=== PATIENT | male | born 1935 | race Caucasian/White ===

== ENCOUNTER 2021-06-14 13:38 | Outpatient (NON) | payer OTHER, SELFPAY | END 2021-06-14 13:39 | disposition home or self-care (01) | LOC: CHSLAB 13:39 | PROVIDERS: Visit Provider Nurse Practitioner Family | DX: R30.0 Dysuria (principal) | CPT/HCPCS: 87086; 87088 ==

== ENCOUNTER 2021-08-05 10:40 | Outpatient (CLI) | payer MEDICARE, OTHER, SELFPAY ==
[2021-08-05 12:15] LABS: Influenza A QL RT-PCR Negative (Negative); Influenza B QL RT-PCR Negative (Negative); SARS-CoV-2 RNA PCR Positive (Negative)
--- NOTE | 2021-08-05 14:30 | PC.NURSE ---
Pt to room 210 amb. A&Ox3. Has no questions or complaints. Regeneron infusion explained. Pt signed consent. Oriented to room, call north in reach. Reminded to call with needs.
[2021-08-05 14:59] VITALS: BP 128/79; PULSE 64; RESP 20; TEMP 37.4; O2SAT 91
[2021-08-05] MEDS: FAMOTIDINE 20 MG TABLET PO (15:00)
[2021-08-05] MEDS: diphenhydrAMINE HCl CAP 25 MG CAPSULE PO (15:00)
[2021-08-05] MEDS: ACETAMINOPHEN 325 MG TABLET 650 MG PO (15:00)
--- NOTE | 2021-08-05 16:33 | PC.NURSE ---
Pt has no questions or complaints. Tolerated infusion well. Discharged to home amb with family.
== END 2021-08-05 10:41 | disposition home or self-care (01) ==
LOC: CHSLAB 10:43 → CHSTREATRM 14:25
PROVIDERS: PCP Family Medicine; Visit Provider Nurse Practitioner Family
DX: U07.1 COVID-19 (principal)
CPT/HCPCS: 87502; A9270; C9803; J7050; M0243; Q0244; U0003; U0005

== ENCOUNTER 2021-08-06 13:23 | Inpatient (IN) | payer OTHER, SELFPAY ==
[2021-08-06] VITALS (9 sets, daily range): BP systolic 99–128; BP diastolic 66–82; PULSE 53–73; RESP 16–24; TEMP 36.3–37.3; O2SAT 88–94
--- NOTE | ~2021-08-06 | XR_ITS ---
EXAMINATION: XR chest 1V portable DATE: 08/06/2021 14:24 INDICATION: Dyspnea. TECHNIQUE: A single frontal view of the chest was obtained. COMPARISON: Chest 2 views 11/20/16, chest CT 02/18/2015 FINDINGS: There are mild airspace opacities in peripheral right midlung zone and left mid and lower l zakia zones. No pleural effusion or pneumothorax. The heart size is normal. IMPRESSION: 1. Mild airspace opacities in peripheral right midlung zone and left mid and lower lung zones, consis tent with COVID-19 pneumonia. Reviewed, dictated and finalized at location A. TECHNICIAN IMPRESSION: 1. Mild airspace opacities in peripheral right midlung zone and left mid and lo wer lung zones, consistent with COVID-19 pneumonia.
--- NOTE | 2021-08-06 13:44 | ECG_ITS ---
Measurements Intervals [place]ez Rate: 68 P: -32 NV: 217 QRS: -44 QRSD: 102 T: 69 QT: 413 QTc: 442 Interpretive Statements SINUS RHYTHM WITH FIRST DEGREE AV BLOCK BORDERLINE R WAVE PROGRESSION, ANTERIOR LEADS INFERIOR INFARCT, AGE INDETERMINATE BORDERLINE ST-T WAVE ABNORMALITY- HIGH LATERAL LEADS BASELINE ARTIFACT- I, II, III, AVR, AVL, AVF, V1, V5-V6 ABNORMAL ECG Electronically Signed On 08-07-2021 7:11:13 TRANSITION RN by Roosevelt Zarco D.O.
--- NOTE | 2021-08-06 13:48 | PC.NURSE ---
Pt placed on 1L O2 per NC. Pt saturation increased to 92%.
[2021-08-06 14:08] LABS: Base Excess ABG 3.8 mmol/L (0-2); HCO3 ABG 28.9 mmol/L (23-29); Oxygen Content ABG 19.6 %vol (16.0-22.0); Oxygen Saturation ABG 93.5 % (95-97); Oxyhemoglobin 92.8 % (94-100); PCO2 ABG 45.2 mmHg (35-45); PO2 ABG 68.4 mmHg (75-85); pH ABG 7.42 (7.35-7.45)
[2021-08-06 14:09] LABS: Device NASAL CANNULA; Modified Allen's Test Pass; Site Drawn LEFT RADIAL
[2021-08-06 14:11] LABS: Basophils Absolute Auto 0.01 K/mm3 (0.00-0.10); Basophils Percent Auto 0.2 % (0.0-1.0); Eosinophils Absolute Auto 0.01 K/mm3 (0.02-0.50); Eosinophils Percent Auto 0.2 % (1.0-6.0); Hemoglobin 14.8 g/dL (12.4-15.3); Immature Granulocyte Absolute 0.02 K/mm3 (0.00-0.00); Immature Granulocyte Percent A 0.3 % (0.0-0.0); Immature Platelet Fraction Pct 2.4 % (1.0-7.0); Lymphocytes Absolute Auto 0.75 K/mm3 (1.10-4.50); Lymphocytes Percent Auto 12.3 % (18.0-42.0); Mean Corpuscular HGB Conc 33.6 g/dL (32.0-36.0); Mean Corpuscular Hemoglobin 29.1 pg (27.0-31.0); Mean Corpuscular Volume 86.6 fL (78.0-102.0); Mean Platelet Volume 9.9 fl (8.7-11.0); Monocytes Absolute Auto 0.36 K/mm3 (0.10-0.90); Monocytes Percent Auto 5.9 % (2.0-11.0); Neutrophils Percent Auto 81.1 % (50.0-70.0); Platelet Count Result 137 K/mm3 (150-420); Red Blood Count 5.08 M/mm3 (4.70-6.10); White Blood Count 6.1 K/mm3 (4.8-10.8)
[2021-08-06 14:21] LABS: Partial Thromboplastin Time 35.6 SEC (23.90-30.70); Prothrombin Time 10.7 Seconds (9.50-12.10)
[2021-08-06 14:29] LABS: Alanine Aminotransferase 28 U/L (16-63); Albumin Level 2.7 g/dL (3.4-5.0); Alkaline Phosphatase 55 U/L (46-116); Anion Gap 9 mmol/L (8-16); Aspartate Amino Transferase 34 U/L (15-37); Bilirubin,Total 0.5 mg/dL (0.00-1.00); Blood Urea Nitrogen 17 mg/dL (7-18); Calcium 7.6 mg/dL (8.5-10.1); Carbon Dioxide 31 mmol/L (21-32); Chloride 100 mmol/L (98-108); Estimated CRCL calculation 37 ml/min; Estimated Glomerular Filt Rate 41; Glucose 139 mg/dL (70-99); Magnesium 1.9 mg/dL (1.8-2.4); NT Pro B Type Natriuretic Pept 675 pg/mL (0-450); Osmolality Calculated 293 mOsm/kg (285-295); Potassium 3.2 mmol/L (3.5-5.1); Sodium 140 mmol/L (136-145); Total Protein 6.5 g/dL (6.4-8.2)
[2021-08-06 14:42] LABS: Troponin I 28.5 ng/L (0.00-60.4)
--- NOTE | 2021-08-06 14:53 | ED.URI ---
HPI - URI/Sore Throat General Chief Complaint: Upper Respiratory Infection Stated Complaint: low oxygen Source: patient Mode of arrival: wheelchair History of Present Illness HPI Narrative: this is 86-year-old gentleman that presents with shortness of breath, was diagnosed with COVID apparently yesterday and currently with shortness of breath has been having lower O2 saturations patient did have O2 saturation upon presentation of 88% and was put on couple of L of oxygen currently has a some congestion nasal congestion with no chest pain no abdominal pain currently no fever chills. MD elicited complaint: cough and nasal congestion Onset (ago): day(s) Consistency: constant Severity: moderate Related Data Allergies Allergy/AdvReac Type Severity Reaction Status Date / Time No Known Allergies Allergy Unknown Verified 06/28/21 07:07 Review of Systems Review of Systems: All systems reviewed & are unremarkable except as noted in HPI and below PMFSH Past Medical History Medical History Adjustment disorder with depressed mood Essential (primary) hypertension (02/21/17) History of primary bladder cancer Influenza vaccine administered Mixed hyperlipidemia Primary generalized (osteo)arthritis Primary insomnia Slow transit constipation Surgical History Surgical History History of urostomy Family History Family History Sibling Hypertension Social History Social History Smoking status: Former smoker Second hand tobacco smoke exposure: No Smoking end date: 09/03/1961 Alcohol intake: never Exam Const: General: no acute distress and alert Orientation/consciousness: patient oriented x3 HENMT: Head: normal to inspection Eyes: Conjunctivae: conjunctivae normal Pupils: Equal, round and reactive pupils present EOM: EOMs intact bilaterally Neck: Neck: normal visual inspection and no lymphadenopathy Chest: Chest palpation & inspection: normal inspection of the chest Resp: Effort & Inspection: normal respiratory effort Auscultation: diminished lung sounds Cardio: Rate: regular rate Rhythm: regular rhythm GI: GI Palp: Yes Soft to palpation Percussion: Yes normal to percussion Back/Spine/Pelvis: Back: no CVA tenderness Skin: General skin exam: normal color Rashes: no rashes Neuro: General: patient oriented x3 and moves all extremities Psych: Mental Status: mental status grossly normal Affect: normal affect Course Course Emergency Course: Patient with a recent diagnosis of COVID presents with some shortness of breath with some hypoxic episodes labs reviewed with patient his PO2 on arterial blood gases 68% had a chest x-ray that was reviewed with patient and will be admitting patient. Vital Signs Vital signs: Vital Signs Temperature 37.3 C 08/06/21 13:44 Pulse Rate 73 08/06/21 13:44 Respiratory Rate 24 H 08/06/21 13:44 Blood Pressure 128/82 08/06/21 13:44 Pulse Oximetry 88 L 08/06/21 13:44 Temperature 37.3 C 08/06/21 13:44 Pulse Rate 73 08/06/21 13:44 Respiratory Rate 24 H 08/06/21 13:44 Blood Pressure 128/82 08/06/21 13:44 Pulse Oximetry 88 L 08/06/21 13:44 MDM - URI/Sore Throat Lab Data Result diagrams: 08/06/21 14:00 08/06/21 14:00 Labs: Lab Results 08/06/21 08/06/21 08/06/21 Range/Units 14:00 14:00 14:00 WBC 6.1 (4.8-10.8) K/mm3 RBC 5.08 (4.70-6.10) M/mm3 Hgb 14.8 (12.4-15.3) g/dL Hct 44.0 (37.0-46.0) % MCV 86.6 (78.0-102.0) fL MCH 29.1 (27.0-31.0) pg MCHC 33.6 (32.0-36.0) g/dL RDW 14.0 (11.6-14.4) % Plt Count 137 L (150-420) K/mm3 MPV 9.9 (8.7-11.0) fl Immature Gran % (Auto) 0.3 H (0.0-0.0) % Neut % (Auto) 81.1 H (50.0-70.0) % Lymph % (Au
--- NOTE | 2021-08-06 18:00 | ADMGEN ---
This patient, Bony Rosales, was admitted to 2nd Floor Room 212-1. Patient/family oriented to hospital policies and general routines including ID bracelet, bed and alarms, visiting hours, pain management, procedures, bathroom and other care routines, personal items, smoking policy, room service/diet, and visiting hours. Information on how to activate the Rapid Response Team has been discussed. Patient/Family are encouraged to report perceived risks to care and to ask questions if they do not understand what they are told or what they should do.
[2021-08-07] VITALS (8 sets, daily range): BP systolic 99–117; BP diastolic 56–67; PULSE 51–94; RESP 15–20; TEMP 36.2–36.6; O2SAT 91–100
[2021-08-07] MEDS: DEXAMETHASONE SOD PHOS INJ 4 MG/ML VIAL 6 MG IV PUSH ×4 (00:50→18:15)
--- NOTE | 2021-08-07 01:29 | PC.NURSE ---
Pt is currently sleeping with the room light dimly lit. Call light is within reach.
--- NOTE | 2021-08-07 03:26 | PC.NURSE ---
Pt is sleeping on his back with the room light on. Call light is within reach.
[2021-08-07 06:20] LABS: Hemoglobin 15.3 g/dL (12.4-15.3); Mean Corpuscular HGB Conc 31.9 g/dL (32.0-36.0); Mean Corpuscular Hemoglobin 28.6 pg (27.0-31.0); Mean Corpuscular Volume 89.7 fL (78.0-102.0); Mean Platelet Volume 10.1 fl (8.7-11.0); Platelet Count Result 141 K/mm3 (150-420); Red Blood Count 5.35 M/mm3 (4.70-6.10); Red Cell Distribution Width 14.2 % (11.6-14.4); White Blood Count 3.6 K/mm3 (4.8-10.8)
[2021-08-07 06:41] LABS: Prothrombin Time 10.4 Seconds (9.50-12.10)
[2021-08-07 06:53] LABS: Alanine Aminotransferase 32 U/L (16-63); Albumin Level 2.7 g/dL (3.4-5.0); Alkaline Phosphatase 55 U/L (46-116); Anion Gap 9 mmol/L (8-16); Aspartate Amino Transferase 38 U/L (15-37); Bilirubin,Total 0.4 mg/dL (0.00-1.00); Blood Urea Nitrogen 23 mg/dL (7-18); Carbon Dioxide 29 mmol/L (21-32); Chloride 103 mmol/L (98-108); Estimated CRCL calculation 38 ml/min; Estimated Glomerular Filt Rate 43; Glucose 160 mg/dL (70-99); Osmolality Calculated 298 mOsm/kg (285-295); Potassium 3.6 mmol/L (3.5-5.1); Sodium 141 mmol/L (136-145); Total Protein 6.7 g/dL (6.4-8.2)
[2021-08-07 07:21] LABS: Band Neutrophils Percent 0 % (0-6); Basophils Percent Manual 0 % (0-1); Eosinophils Percent Manual 0 % (1-6); Lymphocytes Absolute Manual 0.32 K/mm3 (1.1-4.5); Lymphocytes Percent Manual 9 % (18-44); Monocytes Absolute Manual 0.21 K/mm3 (0.1-0.90); Monocytes Percent Manual 6 % (3-9); Neutrophils Absolute Manual 3.06 K/mm3 (1.3-6.7); Neutrophils Percent Manual 85 % (46-73); Platelet Estimate Adequate (Adequate)
[2021-08-07] MEDS: ENOXAPARIN 40 MG/0.4 ML SYRINGE SUB-Q (09:44)
[2021-08-07] MEDS: CELECOXIB 100 MG CAPSULE 200 MG PO (09:45)
[2021-08-07] MEDS: ATORVASTATIN 10 MG TABLET 20 MG PO (09:45)
[2021-08-07] MEDS: lisinopriL 20 MG TABLET 40 MG PO (09:45)
[2021-08-07] MEDS: amLODIPine BESYLATE 5 MG TABLET 10 MG PO (09:45)
[2021-08-07] MEDS: hydroCHLOROthiazide 25 MG TABLET PO (09:46)
[2021-08-07] MEDS: FLUoxetine HCL 20 MG CAPSULE 40 MG PO (09:46)
[2021-08-07] MEDS: REMDESIVIR 200 MG/NS 250 ML 200 MG/250 ML BAG 250 MG IVPB (12:46)
--- NOTE | 2021-08-07 14:03 | PM.IMHP ---
H&P: HPI History of Present Illness Date/Time: 08/07/21 14:03 this is a 86-year-old male who presented to our emergency department with complaints of shortness of breath. Patient has a past medical history of depression and, hypertension, bladder cancer, hyperlipidemia, arthritis, insomnia and constipation. Patient tested positive for Covid on08/05/21 patient notes that he has experienced shortness of breath for several weeks along with his shortness of breath he complains of fatigue and loss of taste. Patient has not been vaccinated. Patient notes that he thought that he had a cold for several weeks and took [id number] medication patient WBCs 3.6 hemoglobin 15.3 hematocrit 48.0, platelets 141 ABG pH 7.42 CO2 45.2 O2 68.4, bicarb 28.9, sodium 140, potassium 2.3, BUN 17, creatinine 1.60, glucose 139, magnesium 1.9, liver function test within normal limits, troponin 28.5, BUN 675, chest ray Covid pneumonia, EKG sinus rhythm with first-degree AV block with a heart rate of 68. Patient be admitted for Covid pneumonia <PETAR Zhang - Last Filed: 08/07/21 14:26> Chief Complaint: Shortness of breath <PETAR Zhang - Last Filed: 08/07/21 14:26> Review of Systems Review of Systems: A 14 organ system Review of Systems was performed and pertinent positives included in the HPI, otherwise remaining ROS is negative. <PETAR Zhang - Last Filed: 08/07/21 14:26> [facility] Past Medical History Medical History: Medical History Adjustment disorder with depressed mood Essential (primary) hypertension (02/21/17) History of primary bladder cancer Influenza vaccine administered Mixed hyperlipidemia Primary generalized (osteo)arthritis Primary insomnia Slow transit constipation <PETAR Zhang - Last Filed: 08/07/21 14:26> Surgical History Surgical History: Surgical History History of urostomy <PETAR Zhang - Last Filed: 08/07/21 14:26> Family History Family History: Family History Sibling Hypertension <PETAR Zhang - Last Filed: 08/07/21 14:26> Social History Social History: Social History Smoking status: Former smoker Second hand tobacco smoke exposure: No Smoking end date: 09/03/1961 Alcohol intake: unknown Substance use: unknown Substance use type: does not use Spiritual care concerns: No <PETAR Zhang - Last Filed: 08/07/21 14:26> Meds Home Medications and Allergies Home medications: Home Medications Medication Instructions Recorded Confirmed Type amlodipine 10 mg tablet 10 mg PO DAILY #90 tablet 12/07/20 08/06/21 Rx celecoxib 200 mg capsule 200 mg PO DAILY #90 cap 12/07/20 08/06/21 Rx fluoxetine 40 mg capsule 40 mg PO .in the morning #90 cap 03/29/21 08/06/21 Rx lisinopril 40 mg tablet 40 mg PO DAILY #90 tablet 07/01/21 08/06/21 Rx atorvastatin 20 mg PO DAILY 08/06/21 08/06/21 History hydrochlorothiazide 25 mg PO DAILY 08/06/21 08/06/21 History melatonin 10 mg PO HS PRN 08/06/21 08/06/21 History <PETAR Zhang - Last Filed: 08/07/21 14:26> Allergies/Adverse reactions: Allergies Allergy/AdvReac Type Severity Reaction Status Date / Time No Known Allergies Allergy Unknown Verified 08/06/21 17:30 <PETAR Zhang - Last Filed: 08/07/21 14:26> Vital Signs Vital Signs - 24 hr 08/06/21 14:58 08/06/21 15:50 08/06/21 17:45 Temperature Pulse Rate 63 66 Respiratory Rate 20 18 Blood Pressure 118/70 123/66 Pulse Oximetry 91 94 94 08/06/21 18:00 08/06/21 20:00 08/06/21 21:39 Temperature 97.4 F L 97.5 F L 97.5 F L Pulse Rate 69 53 L 53 L Respiratory Rate 18 16 16 Blood Pressure 117/68 99/67 L 99/67 L Pulse Oximetry 91 91 91
[2021-08-07] MEDS: BUDESONIDE/FORMOTEROL (*SP) 160-4.5 MCG 6 GM INH 2 PUFF INHALATION (18:15)
[2021-08-07] MEDS: MELATONIN 5 MG TABLET 10 MG PO (21:55)
[2021-08-07] MEDS: ENOXAPARIN 30 MG/0.3 ML SYRINGE SUB-Q (21:55)
[2021-08-08] VITALS: BP 107/57; PULSE 58; RESP 16; TEMP 36.4; O2SAT 92
[2021-08-08] MEDS: DEXAMETHASONE SOD PHOS INJ 4 MG/ML VIAL 6 MG IV PUSH ×4 (00:30→17:40)
[2021-08-08 03:25] VITALS: BP 98/58; PULSE 54; RESP 17; TEMP 36.4; O2SAT 94
[2021-08-08 05:28] VITALS: O2SAT 92
[2021-08-08 06:18] LABS: Hemoglobin 14.2 g/dL (12.4-15.3); Mean Corpuscular HGB Conc 32.3 g/dL (32.0-36.0); Mean Corpuscular Hemoglobin 28.6 pg (27.0-31.0); Mean Corpuscular Volume 88.5 fL (78.0-102.0); Mean Platelet Volume 10.8 fl (8.7-11.0); Platelet Count Result 202 K/mm3 (150-420); Red Blood Count 4.97 M/mm3 (4.70-6.10); Red Cell Distribution Width 13.9 % (11.6-14.4)
[2021-08-08 06:31] LABS: Prothrombin Time 10.2 Seconds (9.50-12.10)
--- NOTE | 2021-08-08 06:37 | PC.NURSE ---
Pt has refused the use of his proair inhaler twice and symbicort this morning. Pt stated I feel like I don't need it and I do not want to use them. Education was provided on how each inhaler works and the benefits of use and importance on how the inhalers can improve disease process. Pt still refused inhalers. Pt has his call light within reach and was fine with receiving decadron via IV push.
[2021-08-08 06:38] LABS: Alanine Aminotransferase 25 U/L (16-63); Albumin Level 2.4 g/dL (3.4-5.0); Alkaline Phosphatase 47 U/L (46-116); Anion Gap 9 mmol/L (8-16); Aspartate Amino Transferase 24 U/L (15-37); Bilirubin,Total 0.2 mg/dL (0.00-1.00); Blood Urea Nitrogen 33 mg/dL (7-18); Calcium 8.2 mg/dL (8.5-10.1); Carbon Dioxide 29 mmol/L (21-32); Chloride 100 mmol/L (98-108); Estimated CRCL calculation 38 ml/min; Estimated Glomerular Filt Rate 43; Glucose 206 mg/dL (70-99); Osmolality Calculated 299 mOsm/kg (285-295); Potassium 3.4 mmol/L (3.5-5.1); Sodium 138 mmol/L (136-145); Total Protein 6.2 g/dL (6.4-8.2)
[2021-08-08 08:00] VITALS: BP 115/66; PULSE 78; RESP 20; TEMP 36.4; O2SAT 91
[2021-08-08] MEDS: POTASSIUM CHLORIDE 20 MEQ TABLET 40 MEQ PO ×2 (08:28→09:59)
[2021-08-08] MEDS: ENOXAPARIN 30 MG/0.3 ML SYRINGE SUB-Q ×2 (08:28→20:53)
[2021-08-08] MEDS: lisinopriL 20 MG TABLET 40 MG PO (08:28)
[2021-08-08] MEDS: ATORVASTATIN 10 MG TABLET 20 MG PO (08:29)
[2021-08-08] MEDS: FLUoxetine HCL 20 MG CAPSULE 40 MG PO (08:29)
[2021-08-08] MEDS: hydroCHLOROthiazide 25 MG TABLET PO (08:29)
[2021-08-08] MEDS: CELECOXIB 100 MG CAPSULE 200 MG PO (08:29)
[2021-08-08] MEDS: DOCUSATE SODIUM 100 MG CAPSULE PO ×2 (09:59→20:53)
[2021-08-08] MEDS: REMDESIVIR 100 MG/NS 250 ML 100 MG/250 ML BAG 250 MG IVPB (10:45)
[2021-08-08] MEDS: ALBUTEROL SULFATE (*SP) INHALER 2 PUFF INHALATION ×3 (11:01→20:53)
[2021-08-08 12:00] VITALS: BP 96/51; PULSE 67; RESP 20; TEMP 36.4; O2SAT 90
--- NOTE | 2021-08-08 13:44 | WPDPN ---
Progress Note: A&P Assessment and Plan (1) Pneumonia due to COVID-19 virus: Code(s): U07.1 - COVID-19; J12.82 - Pneumonia due to coronavirus disease 2019 Status: Acute Assessment and Plan: Tested positive for Covid on 08/05/2021 Chest x-ray indicate Covid pneumonia Continue azithromycin, Rocephin, dexamethasone and remdesivir once a day Blood gas pH 7.42 CO2 45.2 O2 68.4 bicarb 20.9 (2) Mixed hyperlipidemia: Code(s): E78.2 - Mixed hyperlipidemia Status: Acute Assessment and Plan: Continue atorvastatin (3) Primary generalized (osteo)arthritis: Code(s): M15.0 - Primary generalized (osteo)arthritis Status: Acute Assessment and Plan: Continue Celebrex (4) Primary insomnia: Code(s): F51.01 - Primary insomnia Status: Acute Assessment and Plan: Continue melatonin and trazodone (5) Adjustment disorder with depressed mood: Code(s): F43.21 - Adjustment disorder with depressed mood Status: Acute Assessment and Plan: Continue fluoxetine (6) Essential (primary) hypertension: Onset Date: 02/21/17 Code(s): I10 - Essential (primary) hypertension Status: Acute Assessment and Plan: Soft Lisinopril and Norvasc on hold until tomorrow hydrochlorothiazide Vital signs as ordered Will adjust medication as needed (7) Hypokalemia: Code(s): E87.6 - Hypokalemia Status: Acute Assessment and Plan: Potassium 3.2>3.6>3.4 Added daily potassium 40 mEq and gave 1 additional dose today We will continue to monitor (8) Acute kidney injury: Code(s): N17.9 - Acute kidney failure, unspecified Status: Acute Assessment and Plan: Secondary to infection Creatinine 1.60>1.55 >1.56baseline appears to be at 1.10 Continue to monitor Avoid nephrotoxic agent Renal dose medication Subjective Date/time seen: 08/08/21 13:44 patient states that his condition has been he notes that his shortness of breath has improved but he continues to have it he also notes that his cough has improved. Patient is anxious to discharge home I informed him that he should probably stay for a couple more days for treatment with remdesivir and dexamethasone. Patient agrees. The patient denies CP, palpitation, extremity numbness, lightheadedness, dizziness, constipation, diarrhea, chills, or fever. Patient will more than likely need a home O2 evaluation Review of Systems Review of Systems: A 14 organ system Review of Systems was performed and pertinent positives included in the HPI, otherwise remaining ROS is negative. Exam Narrative: GENERAL: Elderly , pleasant gentleman in no apparent distress. HEAD: normocephalic, atraumatic. EYES: PERRL. Sclera clear/white. Vision is grossly intact. EARS: External ears normal, auditory canals clear and without drainage, TMs normal without perforation. Hearing grossly intact. NOSE: External nose normal with no obvious nasal discharge, nares without redness, no rhinorrhea. THROAT: Mucous membranes moist, posterior pharynx clear. NECK: Neck supple, non-tender without lymphadenopathy, masses or thyromegaly. CARDIOVASCULAR: Regular rate and rhythm without murmurs, gallops, or rubs. RESPIRATORY: Diminished throughout with. GASTROINTESTINAL: Abdomen soft, non-tender, nondistended. Bowel sounds are active. No hepato-splenomegaly, or palpable masses. No guarding. SKIN: warm, intact with no suspicious lesions or rash, good texture and turgor. NEURO: awake, alert, and oriented to person, place and time. There were no obvious focal neurologic abnormalities. EXTREMITIES: Normal range of motion. No edema. No calf tenderness. Negative Homans sign bilaterally. BACK: Nontender without deformity or crepitance. No flank tenderness. Objective Data Vital Signs Vital Signs: Vital Signs - 24 hr 08/07/21 16:00 08/07/21 20:00 08/08/21 00:00 Temperature 97.1 F L 97.7 F 97.5 F L P
[2021-08-08 16:00] VITALS: BP 96/51; PULSE 62; RESP 20; TEMP 36.3; O2SAT 91
[2021-08-08] MEDS: BUDESONIDE/FORMOTEROL (*SP) 160-4.5 MCG 6 GM INH 2 PUFF INHALATION (17:40)
--- NOTE | 2021-08-08 19:15 | PC.NURSE ---
Completed change of shift report. Patient was resting comfortably in bed, and stated that he did not need anything at this time. Patient wanted to make sure that he would receive something to help him sleep, as he had not been sleeping very well lately. He stated that bedtime is generally 10 to 10:30 pm.
[2021-08-08] MEDS: MELATONIN 5 MG TABLET 10 MG PO (22:34)
[2021-08-08] MEDS: traZODone HCL 50 MG TABLET PO (22:34)
[2021-08-09] VITALS (9 sets, daily range): BP systolic 84–96; BP diastolic 45–68; PULSE 52–78; RESP 16–20; TEMP 36.3–36.4; O2SAT 87–93
[2021-08-09] MEDS: DEXAMETHASONE SOD PHOS INJ 4 MG/ML VIAL 6 MG IV PUSH ×2 (00:32→06:02)
--- NOTE | 2021-08-09 02:20 | PC.NURSE ---
Completed patient rounding. Patient is sleeping comfortably in bed, with no signs of pain or discomfort.
[2021-08-09 05:53] LABS: Alanine Aminotransferase 23 U/L (16-63); Estimated CRCL calculation 33 ml/min; Estimated Glomerular Filt Rate 37; Prothrombin Time 10.8 Seconds (9.50-12.10)
[2021-08-09] MEDS: BUDESONIDE/FORMOTEROL (*SP) 160-4.5 MCG 6 GM INH 2 PUFF INHALATION (06:02)
[2021-08-09] MEDS: ALBUTEROL SULFATE (*SP) INHALER 2 PUFF INHALATION ×3 (06:03→13:47)
[2021-08-09] MEDS: POTASSIUM CHLORIDE 20 MEQ TABLET 40 MEQ PO (09:15)
[2021-08-09] MEDS: FLUoxetine HCL 20 MG CAPSULE 40 MG PO (09:16)
[2021-08-09] MEDS: ATORVASTATIN 10 MG TABLET 20 MG PO (09:16)
[2021-08-09] MEDS: DOCUSATE SODIUM 100 MG CAPSULE PO (09:16)
[2021-08-09] MEDS: ENOXAPARIN 30 MG/0.3 ML SYRINGE SUB-Q (09:16)
--- NOTE | 2021-08-09 10:17 | HOMEO2EVAL ---
Evaluation was performed at [facility] Home Oxygen Evaluation RC: Home Oxygen (O2) Evaluation Start: 08/09/21 08:46 Freq: ONCE Status: Active Protocol: RPE Activity Type Activity Date Activity User E-Sign Co-Sign Detail Recorded Client Recorded Date Recorded By Document 08/09/21 09:30 SJB [id number] 08/09/21 10:17 SJB Document 08/09/21 09:31 SJB [id number] 08/09/21 10:17 SJB Document 08/09/21 09:33 SJB [id number] 08/09/21 10:17 SJB Document 08/09/21 09:35 SJB [id number] 08/09/21 10:17 SJB Document 08/09/21 09:40 SJB [id number] 08/09/21 10:17 SJB 08/09/21 08/09/21 08/09/21 09:30 09:31 09:33 Home O2 Evaluation Test Phase Resting Exercise Exercise Oxygen Delivery Room Air Nasal Cannula Nasal Cannula Oxygen Flow Rate (L/min) 1 2 Pulse Oximetry (90-100 %) 87 L 88 L 87 L Pulse Rate (60-100 beats/min) 52 L 59 L 75 Activity Tolerance Good Good Good Rate of Perceived Exertion (PE) 11 Fairly light 11 Fairly light 12 Ambulation Distance (feet) 50 100 Home Oxygen Evaluation Comments Will start Will increase Will increase oxygen on 1 lpm oxygen to 2 lpm oxygen to 3 lpm . Also . . patients hr is very irregular. Treatment Charges O2 Evaluation - Inpatient 08/09/21 08/09/21 09:35 09:40 Home O2 Evaluation Test Phase Exercise Exercise Oxygen Delivery Nasal Cannula Nasal Cannula Oxygen Flow Rate (L/min) 3 4 Pulse Oximetry (90-100 %) 87 L 90 Pulse Rate (60-100 beats/min) 68 68 Activity Tolerance Good Good Rate of Perceived Exertion (PE) 12 12 Ambulation Distance (feet) 150 150 Home Oxygen Evaluation Comments Will increase Finished walk oxygen to 4 lpm on 4 lpm, with , PLB Sp02s staying encouraged. 90% and above. PLB encouraged . Returned to bed and placed on 2 lpm with an sp02 of 93% at rest. Treatment Charges
[2021-08-09] MEDS: REMDESIVIR 100 MG/NS 250 ML 100 MG/250 ML BAG 250 MG IVPB (10:27)
--- NOTE | 2021-08-09 14:03 | P.DS_ITS ---
DS: Admitting Diagnosis Discharge Date 08/09/2021 <Leonard DelarosaKATIA dahlC - Last Filed: 08/09/21 14:29> Admitting Diagnosis COVID, Hypokalemia, Acute Kidney Injury <Leonard DelarosaKATIA dahlC - Last Filed: 08/09/21 14:29> DS: Discharge Diagnosis Discharge Diagnosis (1) Pneumonia due to COVID-19 virus: Code(s): U07.1 - COVID-19; J12.82 - Pneumonia due to coronavirus disease 2019 <Leonard DelarosaKATIA dahlC - Last Filed: 08/09/21 14:29> Status: Acute <Leonard DelarosaJANIS dahl-C - Last Filed: 08/09/21 14:29> Assessment and Plan: * Tested positive for Covid on 08/05/2021 * Chest x-ray indicate Covid pneumonia * Continue azithromycin, Rocephin, dexamethasone and remdesivir once a day * Blood gas pH 7.42 CO2 45.2 O2 68.4 bicarb 20.9 08/09/2021 Clear lungs with small expiratory wheezing right side, Pt will be NM'ed home with Home Oxygen after having had a 6 minute Oxygen Walk Test Assessment with the following results: 2 L/min NC while at rest and 4 L/min while ambulating. <Leonard DelarosaDARION dahl - Last Filed: 08/09/21 14:29> (2) Mixed hyperlipidemia: Code(s): E78.2 - Mixed hyperlipidemia <Leonard Parra KATIA ThomasC - Last Filed: 08/09/21 14:29> Status: Acute <Loenard DelarosaJANIS dahl-C - Last Filed: 08/09/21 14:29> Assessment and Plan: * Continue atorvastatin <Leonard RiveraLopez Thomas APN-C - Last Filed: 08/09/21 14:29> (3) Primary generalized (osteo)arthritis: Code(s): M15.0 - Primary generalized (osteo)arthritis <Leonard RiveraLopez Thomas APN-C - Last Filed: 08/09/21 14:29> Status: Acute <Leonard RiveraLopez Thomas APN-C - Last Filed: 08/09/21 14:29> Assessment and Plan: * Continue Celebrex <Leonard ThomasJANIS-C - Last Filed: 08/09/21 14:29> (4) Primary insomnia: Code(s): F51.01 - Primary insomnia <Leonard ThomasJANIS-C - Last Filed: 08/09/21 14:29> Status: Acute <Leonard ThomasJANIS-C - Last Filed: 08/09/21 14:29> Assessment and Plan: * Continue melatonin and trazodone <Leonard ThomasJANIS-C - Last Filed: 08/09/21 14:29> (5) Adjustment disorder with depressed mood: Code(s): F43.21 - Adjustment disorder with depressed mood <Leonrad ThomasJANIS-C - Last Filed: 08/09/21 14:29> Status: Acute <Leonard ThomasJANIS-C - Last Filed: 08/09/21 14:29> Assessment and Plan: * Continue fluoxetine <Leonard ThomasJANIS-C - Last Filed: 08/09/21 14:29> (6) Essential (primary) hypertension: Onset Date: 02/21/17 <Leonard ThomasJANIS-C - Last Filed: 08/09/21 14:29> Code(s): I10 - Essential (primary) hypertension <Leonard ThomasJANIS-C - Last Filed: 08/09/21 14:29> Status: Acute <Leonard ThomasJANIS-C - Last Filed: 08/09/21 14:29> Assessment and Plan: * Soft * Lisinopril and Norvasc on hold until tomorrow hydrochlorothiazide * Vital signs as ordered * Will adjust medication as needed 08/09/2021 BP has been a little soft in the 90s systolic, HCTZ has been discontinued, Pt to follow up with PCP after quarantine is complete <Leonard ThomasKATIAC - Last Filed: 08/09/21 14:29> (7) Hypokalemia: Code(s): E87.6 - Hypokalemia <Leonard ThomasJANIS-C - Last Filed: 08/09/21 14:29> Status: Acute <DARION Bautista - Last Filed: 08/09/21 14:29> Assessment and Plan: * Potassium 3.2>3.6>3.4 * Added daily potassium 40 mEq and gave 1 additional dose today * We will continue to monitor 08/09/2021 Potassium 3.4, HCTZ has been DC'ed <DARION Bautista - Last Filed:
--- NOTE | 2021-08-09 14:03 | PM.DS ---
DS: Admitting Diagnosis Discharge Date 08/09/2021 <Leonard RiveraDARION Mart - Last Filed: 08/09/21 14:29> Admitting Diagnosis COVID, Hypokalemia, Acute Kidney Injury <Leonard Parra DARION Thomas - Last Filed: 08/09/21 14:29> DS: Discharge Diagnosis Discharge Diagnosis (1) Pneumonia due to COVID-19 virus: Code(s): U07.1 - COVID-19; J12.82 - Pneumonia due to coronavirus disease 2019 <Leonard Parra DARION Thomas - Last Filed: 08/09/21 14:29> Status: Acute <Leonard Parra DARION Thomas - Last Filed: 08/09/21 14:29> Assessment and Plan: Tested positive for Covid on 08/05/2021 Chest x-ray indicate Covid pneumonia Continue azithromycin, Rocephin, dexamethasone and remdesivir once a day Blood gas pH 7.42 CO2 45.2 O2 68.4 bicarb 20.9 08/09/2021 Clear lungs with small expiratory wheezing right side, Pt will be VA'ed home with Home Oxygen after having had a 6 minute Oxygen Walk Test Assessment with the following results: 2 L/min NC while at rest and 4 L/min while ambulating. <Leonard RiveraDARION Mart - Last Filed: 08/09/21 14:29> (2) Mixed hyperlipidemia: Code(s): E78.2 - Mixed hyperlipidemia <Leonard RiveraDARION Mart - Last Filed: 08/09/21 14:29> Status: Acute <Leonard RiveraDARION Mart - Last Filed: 08/09/21 14:29> Assessment and Plan: Continue atorvastatin <Leonard RiveraLopez Thomas APN-C - Last Filed: 08/09/21 14:29> (3) Primary generalized (osteo)arthritis: Code(s): M15.0 - Primary generalized (osteo)arthritis <Leonard RiveraDARION Mart - Last Filed: 08/09/21 14:29> Status: Acute <Leonard MiguelDARION Mart - Last Filed: 08/09/21 14:29> Assessment and Plan: Continue Celebrex <Leonard DelarosaJANIS dahl-C - Last Filed: 08/09/21 14:29> (4) Primary insomnia: Code(s): F51.01 - Primary insomnia <Leonard ThomasJANIS-C - Last Filed: 08/09/21 14:29> Status: Acute <Leonard ThomasJANIS-C - Last Filed: 08/09/21 14:29> Assessment and Plan: Continue melatonin and trazodone <Leonard ThomasJANIS-C - Last Filed: 08/09/21 14:29> (5) Adjustment disorder with depressed mood: Code(s): F43.21 - Adjustment disorder with depressed mood <Leonard ThomasKATIAC - Last Filed: 08/09/21 14:29> Status: Acute <Leonard ThomasJANIS-C - Last Filed: 08/09/21 14:29> Assessment and Plan: Continue fluoxetine <Leonard ThomasJANIS-C - Last Filed: 08/09/21 14:29> (6) Essential (primary) hypertension: Onset Date: 02/21/17 <Leonard ThomasJANIS-C - Last Filed: 08/09/21 14:29> Code(s): I10 - Essential (primary) hypertension <Leonard ThomasJANIS-C - Last Filed: 08/09/21 14:29> Status: Acute <Leonard ThomasJANIS-C - Last Filed: 08/09/21 14:29> Assessment and Plan: Soft Lisinopril and Norvasc on hold until tomorrow hydrochlorothiazide Vital signs as ordered Will adjust medication as needed 08/09/2021 BP has been a little soft in the 90s systolic, HCTZ has been discontinued, Pt to follow up with PCP after quarantine is complete <Leonard DelarosaDARION dahl - Last Filed: 08/09/21 14:29> (7) Hypokalemia: Code(s): E87.6 - Hypokalemia <Leonard DelarosaJANIS dahl-C - Last Filed: 08/09/21 14:29> Status: Acute <Leonard DelarosaJANIS dahl-C - Last Filed: 08/09/21 14:29> Assessment and Plan: Potassium 3.2>3.6>3.4 Added daily potassium 40 mEq and gave 1 additional dose today We will continue to monitor 08/09/2021 Potassium 3.4, HCTZ has been DC'ed <DARION Bautista - Last Filed: 08/09/21 14:29> (8) Acute kidney injury: Code(s): N17.9 - Acute kidney failure, unspecified <DARION Bautista - Last Filed: 08/09/21 14:29> Status: Acute <DARION Bautista - Last Filed: 08/09/21 14:29> Assessment and Plan: Secondary to infection Creatinine 1.60>1.55 >1.56baseline appears to be at 1.10
--- NOTE | 2021-08-09 16:50 | PC.NURSE ---
Patient discharged home transported by family member via personal vehicle. IV site discontinued and removed prior to discharge. Discharge instructions given and patient acknowledged understanding of information. All personal belongings bagged and taken with patient. Staff escorted patient to main entrance and assisted into personal vehicle for transport.
--- NOTE | 2021-08-10 10:35 | PCCCNOTE ---
[facility] notified us that they do not have enough staff to provide services for Bony. [facility] can see pt on 08/16/21. Notified niece Rose of agency and date of starting of home health services. Bony is doing well today. He is eating and they are monitoring in pulse oximetry and encouraging deep breathing.
--- NOTE | 2021-08-12 15:14 | PC.NURSE ---
Unable to contact for discharge call back.
== END 2021-08-09 16:50 | disposition home health service (06) | DRG 178 ==
LOC: CHSED 14:57 → CHS2ND 15:17
PROVIDERS: Nurse Practitioner; Admitting Provider Emergency Medicine; Emergency Provider Emergency Medicine; PCP Family Medicine; Visit Provider Emergency Medicine
DX: U07.1 COVID-19 (principal); J12.82 Pneumonia due to coronavirus disease 2019; I10 Essential (primary) hypertension; E78.2 Mixed hyperlipidemia; M19.90 Unspecified osteoarthritis, unspecified site; K59.01 Slow transit constipation; F43.21 Adjustment disorder with depressed mood; Z93.6 Other artificial openings of urinary tract status; Z85.51 Personal history of malignant neoplasm of bladder; N17.9 Acute kidney failure, unspecified; E87.6 Hypokalemia; G47.00 Insomnia, unspecified
CPT/HCPCS: 36415; 36600; 71045; 80053; 82565; 82805; 83735; 83880; 84460; 84484; 85025; 85027; 85055; 85610; 85730; 87040; 93005; 94618; 99285; A9270; J0456; J0696; J1100; J1650

== ENCOUNTER 2021-08-16 14:34 | Outpatient (CLI) | payer OTHER, SELFPAY ==
[2021-08-16 15:16] LABS: Alanine Aminotransferase 40 U/L (16-63); Albumin Level 2.7 g/dL (3.4-5.0); Alkaline Phosphatase 55 U/L (46-116); Anion Gap 8 mmol/L (8-16); Aspartate Amino Transferase 18 U/L (15-37); Bilirubin,Total 0.8 mg/dL (0.00-1.00); Blood Urea Nitrogen 44 mg/dL (7-18); Calcium 8.3 mg/dL (8.5-10.1); Carbon Dioxide 33 mmol/L (21-32); Chloride 103 mmol/L (98-108); Estimated Glomerular Filt Rate 41; Glucose 172 mg/dL (70-99); Osmolality Calculated 313 mOsm/kg (285-295); Potassium 5.2 mmol/L (3.5-5.1); Sodium 144 mmol/L (136-145); Total Protein 5.9 g/dL (6.4-8.2)
== END 2021-08-16 14:35 | disposition home or self-care (01) ==
LOC: CHSLAB 14:36
PROVIDERS: PCP Family Medicine; Visit Provider Family Medicine
DX: U07.1 COVID-19 (principal); J12.82 Pneumonia due to coronavirus disease 2019; E87.6 Hypokalemia; N17.9 Acute kidney failure, unspecified
CPT/HCPCS: 36415; 80053

== ENCOUNTER 2021-08-30 11:23 | Outpatient (CLI) | payer OTHER, SELFPAY ==
[2021-08-30 12:19] LABS: Alanine Aminotransferase 30 U/L (16-63); Albumin Level 2.8 g/dL (3.4-5.0); Alkaline Phosphatase 75 U/L (46-116); Anion Gap 8 mmol/L (8-16); Aspartate Amino Transferase 19 U/L (15-37); Bilirubin,Total 0.8 mg/dL (0.00-1.00); Blood Urea Nitrogen 19 mg/dL (7-18); Calcium 8.6 mg/dL (8.5-10.1); Carbon Dioxide 32 mmol/L (21-32); Chloride 105 mmol/L (98-108); Estimated Glomerular Filt Rate 48; Glucose 123 mg/dL (70-99); Osmolality Calculated 303 mOsm/kg (285-295); Potassium 3.9 mmol/L (3.5-5.1); Sodium 145 mmol/L (136-145); Total Protein 5.9 g/dL (6.4-8.2)
== END 2021-08-30 11:24 | disposition home or self-care (01) ==
LOC: CHSLAB 11:25
PROVIDERS: PCP Family Medicine; Visit Provider Nurse Practitioner Family
DX: N17.9 Acute kidney failure, unspecified (principal); E87.6 Hypokalemia
CPT/HCPCS: 36415; 80053

== ENCOUNTER → 2021-11-25 10:03 | Outpatient (CLI) | payer OTHER, SELFPAY ==
--- NOTE | ~2021-11-25 | XR_ITS ---
XR chest 2V DATE: 11/25/2021 10:21 INDICATION: Covid 19 infection TECHNIQUE: 2 views COMPARISON: 08/06/2021 portable AP chest FINDINGS: Normal heart size. Is aortic unfolding. No hilar or mediastinal enlargement. No pulmonary infiltrate or consolidation, pleural effusion or pulmonary vascular congestion or pneumo thorax. Scoliosis and degenerative change of the thoracic and lumbar spine. Old healed fracture deformity of the lateral aspect of the left eighth rib. IMPRESSION: No active cardiopulmonary disease Reviewed, dictated and finalized at location A.
== END ==
PROVIDERS: PCP Family Medicine; Visit Provider Family Medicine
DX: U07.1 COVID-19 (principal); J12.82 Pneumonia due to coronavirus disease 2019
CPT/HCPCS: 71046

== ENCOUNTER 2022-04-05 09:07 | Outpatient (CLI) | payer OTHER, SELFPAY ==
[2022-04-05 10:11] LABS: Anion Gap 8 mmol/L (8-16); Blood Urea Nitrogen 34 mg/dL (7-18); Calcium 9.2 mg/dL (8.5-10.1); Carbon Dioxide 34 mmol/L (21-32); Chloride 104 mmol/L (98-108); Estimated Glomerular Filt Rate 39; Glucose 100 mg/dL (70-99); Osmolality Calculated 309 mOsm/kg (285-295); Potassium 3.4 mmol/L (3.5-5.1); Sodium 146 mmol/L (136-145)
== END 2022-04-05 09:08 | disposition home or self-care (01) ==
LOC: CHSLAB 09:10
PROVIDERS: PCP Family Medicine; Visit Provider Family Medicine
DX: E87.6 Hypokalemia (principal)
CPT/HCPCS: 36415; 80048

== ENCOUNTER 2022-07-05 08:58 | Outpatient (CLI) | payer OTHER, SELFPAY ==
[2022-07-05 19:13] LABS: Basophils Absolute Auto 0.1 K/mm3 (0.0-0.1); Basophils Percent Auto 1.1 % (0.2-1.2); Eosinophils Absolute Auto 0.4 K/mm3 (0-0.3); Hemoglobin 14.7 g/dL (14.0-18.0); Immature Granulocyte Absolute 0.02 K/mm3 (0.00-0.031); Immature Granulocyte Percent A 0.4 % (0-0.5); Lymphocytes Absolute Auto 1.18 K/mm3 (0.9-3.2); Lymphocytes Percent Auto 21.3 % (18.3-44.2); Mean Corpuscular HGB Conc 31.3 g/dl (32-36); Mean Corpuscular Hemoglobin 28.8 pg (26-34); Mean Platelet Volume 10.1 fl (7.4-10.4); Monocytes Absolute Auto 0.5 K/mm3 (0.1-0.6); Monocytes Percent Auto 9.2 % (2.6-8.5); Neutrophils Absolute Auto 3.4 K/mm3 (1.3-6.7); Platelet Count Result 199 k/mm3 (150-375); Red Blood Count 5.11 M/mm3 (4.6-6.20); Red Cell Distribution Width 14.5 % (11.5-14.5); White Blood Count 5.6 K/mm3 (4.5-10.0)
[2022-07-05 19:33] LABS: Alanine Aminotransferase 34 U/L (6-50); Albumin Level 3.8 g/dL (3.5-5.1); Alkaline Phosphatase 83 U/L (38-126); Anion Gap 7 mmol/L (8-16); Aspartate Amino Transferase 35 U/L (17-59); Bilirubin,Total 0.8 mg/dL (0.2-1.3); Blood Urea Nitrogen 27 mg/dL (9-20); Carbon Dioxide 30 mmol/L (22-30); Chloride 104 mmol/L (98-107); Cholesterol 132 mg/dL (0-200); Estimated Glomerular Filt Rate 48; Glucose 102 mg/dL (65-110); HDL Direct 41 mg/dL; Potassium 4.1 mmol/L (3.4-5.0); Sodium 141 mmol/L (137-145); Triglycerides 102 mg/dL (<150)
[2022-07-05 19:44] LABS: LDL Cholesterol Direct 54 mg/dL
== END 2022-07-05 08:59 | disposition home or self-care (01) ==
LOC: ANHGOSHLAB 09:04
PROVIDERS: PCP Internal Medicine; Visit Provider Nurse Practitioner
DX: E87.6 Hypokalemia (principal); R79.89 Other specified abnormal findings of blood chemistry; E78.2 Mixed hyperlipidemia; I10 Essential (primary) hypertension
CPT/HCPCS: 36415; 80053; 80061; 85025

== ENCOUNTER 2022-10-03 10:27 | Outpatient (CLI) | payer OTHER, MEDICAID, SELFPAY ==
--- NOTE | ~2022-10-03 | CT_ITS ---
EXAMINATION: CT abdomen pelvis w con INDICATION: Flank and lower abdominal pain TECHNIQUE: Computed tomographic images of the abdomen and pelvis were obtained after the administrati on of 100 cc of Omnipaque 350 intravenous contrast. The dose-length product (DLP) was 1673.83 mGy-cm. Automated exposure control and iterative reconstruction technique were employed. COMPARISON: 11/20/2016 FINDINGS: Minimal dependent atelectasis is present in the lung bases. The heart size is normal. There is mild bronchiectasis in the lower lobes. Healed left-sided rib fractures are noted. The liver, drew creas, gallbladder, and adrenal glands are normal. A 4 mm enhancing mass of the spleen likely reflect s a hemangioma. Cysts of the kidneys measure up to 2.6 cm on the left. There are areas of cortical sc arring in the right kidney, new since the comparison examination. In addition, there is mild atrophy of the right kidney, also new since the comparison examination. There is calcified atherosclerosis of the aorta and many of the other arteries. There are changes of cystectomy with right lower quadrant ileal conduit formation. The appendix is normal. No pathologically enlarged abdominal or pelvic lymph nodes are identified. There is severe lumbar spondylosis. There is a left inguinal hernia containin g fat. IMPRESSION: 1. Fat-containing left inguinal hernia.. 2. 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 3. Diverticulosis without evidence of diverticulitis. Reviewed, dictated and finalized at location L. [employer]
[2022-10-03 10:48] LABS: Estimated Glomerular Filt Rate 36
== END 2022-10-03 10:28 | disposition home or self-care (01) ==
LOC: ANHIMG 10:27
PROVIDERS: PCP Internal Medicine; Visit Provider Nurse Practitioner
DX: R10.9 Unspecified abdominal pain (principal); Z85.51 Personal history of malignant neoplasm of bladder; K40.90 Unilateral inguinal hernia, without obstruction or gangrene, not specified as recurrent; K57.90 Diverticulosis of intestine, part unspecified, without perforation or abscess without bleeding; N26.1 Atrophy of kidney (terminal)
CPT/HCPCS: 74177; Q9967

== ENCOUNTER → 2022-10-11 08:51 | Outpatient (CLI) | payer OTHER, SELFPAY ==
--- NOTE | ~2022-10-11 | US_ITS ---
Testicular ultrasound with doppler. Indication: Epididymitis. Technique: Real-time sonography the scrotum was performed. Color flow Doppler and Doppler spectral an alysis were performed. 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 There is no evidence of an intratesti cular mass. The right testis measures 3.9 x 2.4 x 3.5 cm and the left 4.0 x 2.8 x 3.0 cm. There is co barry-flow seen to both testes. Arterial and venous spectral waveforms are seen in both testes. There i s no sonographic evidence of torsion. There is a 1 cm right epididymal head cyst or spermatocele. Sma ll to moderate right hydrocele present. Minimal left hydrocele present. In the right groin region, separate from the testis/epididymis, there is a 3.5 x 4.1 x 2.6 cm cystic mass or fluid collection, with heterogeneous internal masslike echoes. Impression: 3.5 x 4.1 x 2.6 cm cystic mass or fluid collection, with heterogeneous internal masslike echoes in th e right groin. Retrospectively, this correlates with finding on recent CT scan dated 10/03/2022. The i nternal echoes could reflect hemorrhagic material/resolving blood clot, within an otherwise benign cy stic lesion. Correlate clinically for abscess/infection. Necrotic/cystic neoplastic lesion in the halina in is less likely, though not definitively excluded. 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 Small to moderate right hydrocele. Minimal left hydrocele. Reviewed, dictated and finalized at [facility]. [employer] A[employer] TECHNICIAN Impression: 3.5 x 4.1 x 2.6 cm cystic mass or fluid collection, with heterogeneous internal masslike echoes in the right groin. Retrospectively, this correlates with find ing on recent CT scan dated 10/03/2022. The internal echoes could reflect hemorr hagic material/resolving blood clot, within an otherwise benign cystic lesion. Correlate clinically for abscess/infection. Necrotic/cystic neoplastic lesion i n the groin is less likely, though not definitively excluded. 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 Small to moderate right hydrocele. Minimal left hydrocele.
== END ==
PROVIDERS: PCP Internal Medicine; Visit Provider Nurse Practitioner
DX: N45.1 Epididymitis (principal); N43.3 Hydrocele, unspecified
CPT/HCPCS: 76870; 93976

== ENCOUNTER → 2022-11-01 09:56 | Outpatient (CLI) | payer OTHER, SELFPAY ==
--- NOTE | ~2022-11-01 | US_ITS ---
Testicular ultrasound with doppler. Indication: Abscess. Technique: Real-time sonography the scrotum was performed. Color flow Doppler and Doppler spectral an alysis were performed. 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 Possible additional in tratesticular cysts in the right testis, unchanged. No suspicious intratesticular mass. The right chandu tis measures 3.9 x 2.7 x 3.8 cm and the left 3.4 x 2.6 x 3.3 cm. There is color-flow seen to both chandu chandu. Arterial and venous spectral waveforms are seen in both testes. There is no sonographic evidence of torsion. Stable anechoic right epididymal head cyst or spermatocele, measuring 1 cm in diameter. Small bilater al hydroceles present. More superiorly in the right groin, there is a complex cystic mass or collection measuring 3.7 x 3.6 x 2.6 cm, with heterogeneous internal echoes, but no distinct color flow internally. This is unchange d from prior exam. Impression: Stable complex cystic mass or collection in the right groin, as detailed above. This remains indeterm inate, and could reflect abscess. Given lack of interval change, consider aspiration. 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 Reviewed, dictated and finalized at [facility]. 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 This remains indeterminate, and could reflect abscess. Given lack of interval change, consider aspiration. Additional benign findings are unchanged, including bilateral tubular ectasia o f the rete testis, right epididymal cyst or spermatocele, and small bilateral h ydroceles.
== END ==
PROVIDERS: PCP Nurse Practitioner; Visit Provider Nurse Practitioner
DX: N45.4 Abscess of epididymis or testis (principal)
CPT/HCPCS: 76870; 93976

== ENCOUNTER 2023-05-30 15:32 | Emergency (ER) | payer OTHER, SELFPAY ==
--- NOTE | ~2023-05-30 | XR_ITS ---
EXAMINATION: XR chest 2V DATE: 05/30/2023 15:58 INDICATION: Cough and congestion TECHNIQUE: PA and lateral views of the chest were obtained. COMPARISON: Chest radiograph dated 11/25/2021 FINDINGS: Again seen is mild streaky bibasilar atelectasis/scarring. No new airspace opacities, pulmonary edema , pleural effusion or pneumothorax. Heart size is normal. Tortuous thoracic aorta. Old healed lateral left eighth rib fracture. IMPRESSION: 1. Mild streaky bibasilar atelectasis. Reviewed, dictated and finalized at location A.
[2023-05-30 15:45] VITALS: BP 128/83; PULSE 63; RESP 16; TEMP 37.1; O2SAT 97
--- NOTE | 2023-05-30 16:21 | ED.URI ---
HPI - URI/Sore Throat General Chief Complaint: Upper Respiratory Infection Stated Complaint: CONGESTION Time Seen by Provider: 05/30/23 16:13 Source: patient, family and RN notes reviewed Mode of arrival: ambulatory Limitations: no limitations History of Present Illness HPI Narrative: Patient presents today complaining of a 2-3 day history of rhinorrhea, cough, postnasal drip, and occasional wheezing. Denies shortness of breath or fever. Patient has been taking Coricidin HBP and occasional Flonase for his symptoms. He is requesting a chest x-ray. Declines testing for COVID-19 and influenza. Related Data Home Medications Medication Instructions Recorded Confirmed melatonin 10 mg disintegrating 10 mg PO HS PRN Insomnia 08/06/21 04/20/23 tablet multivitamin with minerals 1 tablet PO DAILY 06/22/22 04/20/23 coenzyme Q10 200 mg capsule (Co 200 mg PO DAILY 06/23/22 04/20/23 Q-10) Allergies Allergy/AdvReac Type Severity Reaction Status Date / Time No Known Allergies Allergy Unknown Verified 05/30/23 16:12 Review of Systems Review of Systems: CONSTITUTIONAL: Denies body aches, fever, chills, or sweats. EYES: Denies visual changes, redness, or discharge. ENT: Denies congestion, sore throat, or otalgia.+ rhinorrhea, postnasal drip CARDIOVASCULAR: Denies chest pain, palpitations, or edema. RESPIRATORY: Denies dyspnea.+ cough, wheezing GASTROINTESTINAL: Denies abdominal pain, nausea, vomiting, or diarrhea. GENITOURINARY: Denies dysuria or hematuria. SKIN: Denies rash, itching, or wounds. MUSCULOSKELETAL: Denies back pain, joint pain, or myalgia. NEUROLOGIC: Denies headache, numbness, tingling, or weakness. PSYCH: Denies depression or anxiety. [facility] Past Medical History Medical History Adjustment disorder with depressed mood CKD (chronic kidney disease) Essential (primary) hypertension (02/21/17) History of primary bladder cancer Influenza vaccine administered Mixed hyperlipidemia Primary generalized (osteo)arthritis Primary insomnia Slow transit constipation Surgical History Surgical History (Reviewed 05/30/23 @ 16:23 by Gris Wright, [facility]) H/O prostatectomy History of urostomy Family History Family History (Reviewed 05/30/23 @ 16:23 by Gris Wright, [facility], ) Sibling Hypertension Depression Anxiety Heart disease Cerebrovascular accident Alzheimer disease Father Cancer Social History Social History (Reviewed 05/30/23 @ 16:23 by Gris Wright, [facility], ) Smoking status: Former smoker Second hand tobacco smoke exposure: No Smoking end date: 09/03/1961 Alcohol intake: unknown Substance use: unknown Substance use type: does not use Living arrangements: with family Occupation/Education: retired Spiritual care concerns: No Comments At time of signature, I have reviewed and agree with nursing past medical, surgical, social and family history unless otherwise noted. Please see nursing chart for further information. There is no relevant family history pertinent to the presenting complaint Exam Narrative: GENERAL: Well-appearing, well-nourished, and in no acute distress. HEAD: Normocephalic, atraumatic. EYES: EOMI. No redness or drainage. Conjunctivae normal. ENT: Mucous membranes pink and moist. Nares clear. No rhinorrhea. TMs normal bilaterally. Throat mildly erythematous without edema or exudate. Uvula midline. NECK: Normal AROM. Supple. No lymphadenopathy. CHEST: No respiratory distress. Slight crackle in the right lower lobe, otherwise clear. HEART: Regular rate and rhythm. No murmur appreciated. Normal peripheral pulses. EXTREMITIES: Normal range of motion. No edema. SKIN: Warm, dry, no rash. Capillary refill normal. Normal skin turgor. NEURO: No focal deficits. Alert and oriented x3. Gait steady. PSYCH: Normal affect. No signs of depression or anxiety. Course [facility]
== END 2023-05-30 16:30 | disposition home or self-care (01) ==
PROVIDERS: Emergency Provider Nurse Practitioner; PCP Nurse Practitioner
DX: J06.9 Acute upper respiratory infection, unspecified (principal); I12.9 Hypertensive chronic kidney disease with stage 1 through stage 4 chronic kidney disease, or unspecified chronic kidney disease; N18.9 Chronic kidney disease, unspecified; E78.2 Mixed hyperlipidemia; Z87.891 Personal history of nicotine dependence
CPT/HCPCS: 71046; 99213; G0463

== ENCOUNTER 2023-06-05 09:55 | Outpatient (CLI) | payer OTHER, SELFPAY ==
[2023-06-05 18:31] LABS: Basophils Absolute Auto 0.1 K/mm3 (0.0-0.1); Basophils Percent Auto 1.1 % (0.2-1.2); Eosinophils Absolute Auto 0.4 K/mm3 (0-0.3); Eosinophils Percent Auto 5.7 % (0-4.4); Hematocrit 50.5 % (42.0-52.0); Hemoglobin 15.4 g/dL (14.0-18.0); Immature Granulocyte Absolute 0.02 K/mm3 (0.00-0.031); Immature Granulocyte Percent A 0.3 % (0-0.5); Lymphocytes Absolute Auto 1.65 K/mm3 (0.9-3.2); Lymphocytes Percent Auto 26.7 % (18.3-44.2); Mean Corpuscular HGB Conc 30.5 g/dl (32-36); Mean Corpuscular Hemoglobin 28.5 pg (26-34); Mean Corpuscular Volume 93.5 fl (80-100); Monocytes Absolute Auto 0.6 K/mm3 (0.1-0.6); Monocytes Percent Auto 9.4 % (2.6-8.5); Neutrophils Absolute Auto 3.5 K/mm3 (1.3-6.7); Neutrophils Percent Auto 56.8 % (45.5-73.1); Platelet Count Result 192 k/mm3 (150-375); Red Cell Distribution Width 14.7 % (11.5-14.5); White Blood Count 6.2 K/mm3 (4.5-10.0)
[2023-06-05 18:38] LABS: Appearance Urine Clear (Clear); Bacteria Urine 4+ /hpf; Bilirubin Urine Negative (Negative); Blood Urine 2+ (Negative); Color Urine Yellow (Yellow); Glucose Urine UA Negative (Negative); Hyaline Casts Urine Present /lpf; Ketones Urine Negative (Negative); Leukocyte Esterase Ur 1+ LEU/UL (NEGATIVE); Mucus Urine Present /lpf; Nitrate Urine Positive (Negative); Protein Urine 2+ mg/dL (Negative); RBC Urine 21-50 /hpf (0-2); Specific Grav Ur 1.016 (1.001-1.035); Squamous Epithelial Cell Urine Occasional /hpf (Few); Urobilinogen Urine 0.2 mg/dL (<2.0); WBC Urine 21-50 /hpf (0-3)
[2023-06-05 19:25] LABS: Add Urine Microscopic? YES
[2023-06-05 19:28] LABS: Alanine Aminotransferase 43 U/L (6-50); Albumin Level 3.9 g/dL (3.5-5.1); Alkaline Phosphatase 83 U/L (38-126); Anion Gap 4 mmol/L (8-16); Aspartate Amino Transferase 64 U/L (17-59); Bilirubin,Total 0.9 mg/dL (0.2-1.3); Blood Urea Nitrogen 22 mg/dL (9-20); Calcium 8.9 mg/dL (8.4-10.2); Carbon Dioxide 35 mmol/L (22-30); Chloride 102 mmol/L (98-107); Estimated Glomerular Filt Rate 48; Glucose 79 mg/dL (65-110); Potassium 4.2 mmol/L (3.4-5.0); Sodium 141 mmol/L (137-145)
== END 2023-06-05 09:56 | disposition home or self-care (01) ==
PROVIDERS: PCP Internal Medicine; Visit Provider Internal Medicine
DX: N99.528 Other complication of incontinent external stoma of urinary tract (principal); N18.9 Chronic kidney disease, unspecified
CPT/HCPCS: 36415; 80053; 81001; 85025